=== PATIENT | male | born 1965 | race Caucasian/White ===

== ENCOUNTER 2018-10-28 10:34 | Emergency (ER) | payer BC ==
[2018-10-28] MEDS ORDERED: Dexamethasone 4 MG/ML SDV IM ONE (11:03)
--- NOTE | 2018-10-28 11:11 | EDM.PDOC ---
ED HPI GENERAL MEDICAL PROBLEM - General Chief Complaint: Bite:Animal, Insect Stated Complaint: STUNG BY BEE LEFT HAND SWELLING Time Seen by Provider: 10/28/18 10:55 Source of Information: Reports: Patient History Limitations: Reports: No Limitations - History of Present Illness INITIAL COMMENTS - FREE TEXT/NARRATIVE: Alert pleasant 48-year-old gentleman presents with localized swelling to his left hand. Patient was getting his boat radiates yesterday to go fishing. He felt a sharp sting between his third and fourth knuckles. He does not be flying around. That she placed his hand. Patient had abrupt swelling of his left hand that is progressively gotten worse over the course of last 24 hours. Patient took Benadryl that was yesterday without improvement. The swelling is become more significant involving his hand and his fingers. He denies any pain but does have significant localizing. Onset: Sudden (yesterday with suddent worsening not improving ) Onset Date: 10/27/18 Duration: Day(s): (2), Constant, Getting Worse Location: Reports: Upper Extremity, Right Quality: Reports: Pressure, Same as Previous Episode (1-2 years ago reacted form a bee bite wtih localized swelling ) Severity: Moderate Improves with: Reports: None Associated Symptoms: Reports: No Other Symptoms. Denies: Chest Pain, Diaphoresis, Nausea/Vomiting, Shortness of Breath - Related Data Allergies Allergy/AdvReac Type Severity Reaction Status Date / Time No Known Allergies Allergy Verified 10/28/18 10:52 Home Meds: Home Meds Ibuprofen 800 mg PO Q6HR PRN 10 Days #30 tablet 10/28/18 [Rx] Loratadine [Claritin] 10 mg PO BID 10 Days #20 capsule 10/28/18 [Rx] predniSONE [Prednisone] 20 mg PO BID 5 Days #10 tablet 10/28/18 [Rx] Past Medical History - Past Health History Medical/Surgical History: Denies Medical/Surgical History - Infectious Disease History Infectious Disease History: Reports: Chicken Pox - Past Surgical History GI Surgical History: Reports: Appendectomy Social & Family History - Tobacco Use Smoking Status *Q: Never Smoker - Caffeine Use Caffeine Use: Reports: Coffee - Recreational Drug Use Recreational Drug Use: No - Living Situation & Occupation Living situation: Reports: Occupation: Employed Social History Comment: visiting the area to [facility] ED ROS GENERAL - Review of Systems Review Of Systems: ROS reveals no pertinent complaints other than HPI. ED EXAM, ANIMAL BITE - Physical Exam Exam: See Below Exam Limited By: No Limitations General Appearance: Alert, WD/WN, No Apparent Distress Throat/Mouth: Normal Inspection, Normal Lips, Normal Teeth, Normal Gums, Normal Oropharynx, Normal Voice, No Airway Compromise Head: Normocephalic Neck: Normal Inspection, Supple, Non-Tender, Full Range of Motion Respiratory/Chest: No Respiratory Distress, Lungs Clear, Normal Breath Sounds, No Accessory Muscle Use, Chest Non-Tender Cardiovascular: Normal Peripheral Pulses, Regular Rate, Rhythm, No Edema, No Gallop GI/Abdominal: Normal Bowel Sounds, Soft, Non-Tender Extremities: Non-Tender, Slow Capillary Refill (in finger sdue to significant hand swelling with slight erythema. No pain to palpation or signs of bacterial infection. Swelling localized to hand with itching noted ) Neurological: Alert, Oriented, CN II-XII Intact, Normal Cognition, Normal Gait, Normal Reflexes, No Motor/Sensory Deficits Psychiatric: Normal Affect, Normal Mood Skin Exam: Warm/Dry, DRY, I, Normal Color (left hand localized swelling and edema with itching. No open wounds. ), NR Course - Vital Signs Last Recorded V/S: Last Vital Signs Temp 35.9 C 10/28/18 10:52 Pulse 61 10/28/18 10:52 Resp 16 10/28/18 10:52 BP 146/83 H 10/28/18 10:52 Pulse Ox 100 10/28/18 10:52 - Orders/Labs/Meds Meds: Medications Discontinued Medications Generic Name Dose Route Start Last Admin Trade Name Freq PRN Reason Stop Dose Admin Dexamethasone 10 mg 10/28/18 11:03 Dexamethasone IM 10/28/18 11:04 ONETIME ONE Departure - Departure Time of Disposition: 11:25 Disposition: Home, Self-Care 01 Condition: Good Clinical Impression: Allergic reaction to bee sting - Discharge Information Prescriptions: Ibuprofen 800 mg PO Q6HR PRN 10 Days #30 tablet PRN Reason: Fever Loratadine [Claritin] 10 mg PO BID 10 Days #20 capsule predniSONE [Prednisone] 20 mg PO BID 5 Days #10 tablet Instructions: Insect Bite, Adult, [id number], Bee, Wasp, or Hornet Sting, Adult, Anaphylactic Reaction, Adult Referrals: PCP,None [Primary Care Provider] - Additional Instructions: 1. Take medications as directed. Instymed Claritin and Prednisone as directed. 2. Apply a cool wash cloth to any areas that are itching or red. 3. Mauricio wrap to help with swelling and edema. 4. See PCP in 7-10 days if not improved. Review allergic reaction information. Discuss bee sting severe allergic reaction symptoms with PCP and EPI use. 5. Return for repeat evaluation if increase, changes, new or worsen symptoms: including swelling or the lips, wheezing, difficulty breathing or swallowing. 6. Follow Insect Bite and sting information. Insect Bites and Stings: What kinds of reactions do insect bites cause? For most people, a minor insect bite or sting may cause a little swelling and itching. The site may be painful for a few hours. Mosquitoes, biting flies, and some spiders usually cause mild reactions. Yellow jackets, honeybees, paper wasps, hornets, and fire ants cause more severe sting reactions. Everyone reacts to the toxic effects of insect venom, for example, from a bee sting. Most people have mild reactions, which may appear in a few minutes or up to 48 hours after the bite or sting. Some people have insect allergies, which may cause mild to severe allergic reactions. Mildly allergic people may have hives with intense itching and pain around the site as well as eye itching. Others may have blisters where they were bitten. A severe allergic reaction to a bite will happen within minutes of the bite. The symptoms may include: severe swelling of the lips, tongue, or throat trouble breathing nausea, cramping, diarrhea, or vomiting hives dizziness loss of consciousness. How are insect bites treated? If you are stung by a bee, remain calm and brush away the insect. Bees leave a stinger in your skin, but hornets, wasps, and yellow jackets typically do not. Remove a stinger within 30 seconds by scraping it with a fingernail. Do not squeeze the stinger, or it will likely release more venom. When you are bitten by a tick, remove the tick right away using fine-tipped tweezers to grasp it firmly close to the skin. Do not squeeze the tick's body. You may want to save the tick for identification in case you become ill. This may help your health care provider make an accurate diagnosis. Place the tick in a sealable plastic bag and put it in your freezer. Wash your hands after touching the tick. Wash the bite area and put an antiseptic on it. See your provider if you start having symptoms such as a rash, fever, and muscle aches, or joint pain. If you have a mild reaction to an insect bite or sting: Make a paste of 3 teaspoons baking soda and 1 teaspoon water and rub the area of the bite or sting with it. Put a cold, moist cloth or ice cubes on the bitten area. Put hydrocortisone cream, calamine lotion, or antihistamine cream on the area to help reduce itching and swelling. Elevate the bitten area, if possible, to help prevent swelling. If you are bitten by a spider or stung by a scorpion, put a cloth-covered ice pack on the area. If the scorpion or spider may be poisonous, go to the emergency room. Urgent care for a poisonous bite is especially important for children or older adults. If it can be done safely, take the spider in a jar to the emergency room, so it can be identified. If you know you are allergic to some insect stings, ask your health care provider about carrying an injection kit of epinephrine, such as EpiPen or Olga- Kit. With the kit you can give yourself a shot of medicine to counteract the allergic reaction until medical help arrives. Wear a Medic Alert ID that warns of your allergy and tells what to do in case of an emergency. Tell your family, friends, and co-workers what they should do if you have a severe allergic reaction. A severe allergic reaction is life-threatening. Call 911 immediately if someone is bit and has the symptoms of a severe reaction. If the person carries an injection kit, use it right away. Cardiopulmonary resuscitation (CPR) may be necessary. If the person has stopped breathing or his or her heart has stopped beating. How can I help prevent insect bites? Follow these guidelines to help prevent insect bites: Avoid walking barefoot or wearing open-toe shoes when outdoors. Do not wear clothing that is loose or brightly colored. Avoid perfume. Do not disturb beehives or hornet nests. Keep food and soft drinks covered, and keep garbage cans tightly covered. To avoid mosquito bites or tick bites, keep the body covered. Stay away from where mosquitoes breed. Use an insect repellent whenever you are outdoors. Don' t use more repellent than recommended in the package directions. Don't put repellent on open wounds or rashes. Do not apply it to your eyes or mouth. When using sprays, do not spray it directly on your face--spray the repellent on your hands first and then put it on your face. Wash the spray off your hands. Be careful with children because repellents can make them ill. Repellent products containing either DEET or picaridin as active ingredients have been proven to provide longer-lasting protection than others. Adults should use products with no more than 35% DEET. Children should use repellents with no more than 10% DEET. DEET should be washed off your body when you go back indoors. In some studies, oil of lemon eucalyptus, a plant-based repellent, provided as much protection as repellents with low concentrations of DEET, but it hasn't been as well tested as DEET. Oil of lemon eucalyptus should not be used on children under age 3. Picaridin is a repellent just recently made available in the [place]. It can be less irritating to the skin than DEET. Some products containing permethrin are recommended for use on clothing, shoes, bed nets, and camping gear. Permethrin is highly effective as an insecticide and as a repellent. Permethrin-treated clothing repels and kills ticks, mosquitoes, and other insects and continues to work after repeated laundering. The permethrin insecticide should be reapplied according to the label instructions. Some commercial products are available pretreated with permethrin. Don't put permethrin on your skin. It is also important to prevent the possibility of getting a tetanus infection. The skin broken by an insect bite could become infected with tetanus bacteria. You can prevent this type of infection by keeping up to date with tetanus booster shots. Developed by [employer]. - Problem List & Annotations (1) Allergic reaction to bee sting SNOMED Code(s): 309911483 Code(s): T63.441A - TOXIC EFFECT OF VENOM OF BEES, ACCIDENTAL, INIT Status : Acute Priority: High Current Visit: Yes - Problem List Review Problem List Initiated/Reviewed/Updated: Yes
== END 2018-10-28 11:39 | disposition home or self-care (01) ==
LOC: JP.ED 10:34
DX: T63.441A Toxic effect of venom of bees, accidental (unintentional), initial encounter (principal)
CPT/HCPCS: 96372; 99282; J1100